=== PATIENT | male | born 1970 | race American Indian/Alaskan Native ===

== ENCOUNTER 2021-09-07 22:28 | Emergency (ER) | payer SELFPAY ==
[2021-09-07 22:35] VITALS: BP 155/98
[2021-09-07] MEDS ORDERED: RABIES VACCINE, HUMAN DIPLOID/PF 2.5 UNIT/ML VIAL IM ONE (23:46)
[2021-09-07] MEDS ORDERED: RABIES IMMUNE GLOBULIN P/F 300 UNIT/ML INJ 5 ML IM ONE (23:46)
[2021-09-07] MEDS ORDERED: ONDANSETRON 4 MG ODT TAB PO ONE (23:47)
[2021-09-07] MEDS ORDERED: HYDROcodone/ACETAMINOPHEN 7.5-325MG TAB PO ONE (23:47)
[2021-09-07] MEDS ORDERED: AMOXICILLIN/K CLAV 875/125MG TAB PO ONE (23:47)
--- NOTE | 2021-09-08 00:57 | XRay Report ---
LEFT HAND 4 VIEW(S) INDICATION / CLINICAL INFORMATION: Puncture woundsleft hand - dog bite COMPARISON: None available. FINDINGS: BONES / JOINT(S): No acute fracture or subluxation. No significant arthritis. SOFT TISSUES: No significant abnormality. ADDITIONAL FINDINGS: None. IMPRESSION: 1. No acute fracture. No significant abnormality. Signer Name: Marcus Naranjo II, MD Signed: 09/08/2021 12:52 AM Workstation Name: [id number]
--- NOTE | 2021-09-08 01:07 | Emergency Department Report ---
ED Animal Bite HPI - General Chief Complaint: Animal Bite Stated Complaint: Dog bite left hand Source: patient, EMS Mode of arrival: Stretcher Limitations: No Limitations - History of Present Illness Initial Comments: Patient is a 50-year-old -[place] male with no past medical history presented to the ED with complaint of acute onset persistent painful dorsal left hand puncture wounds after being bitten by a stray dog on the street about 1 hour prior to arrival in the ED. Patient states that the pain is worse with any active range of motion of the left hand. Patient states that he is up-to-date with all his vaccinations. Patient denies numbness and tingling or weakness of left hand, dizziness, syncope, nausea and vomiting or chest pain, shortness of breath or neck or head injuries. MD Complaint: animal bite (Dog bite to dorsal left hand), animal-related injury (Puncture wound on dorsal left hand) -: Sudden, hour(s) (1) Location: other (dorsal left hand) Left: Hand (dorsal left hand puncture wounds) Animal: dog Animal Control Notified: No Description: unknown animal Mechanism: bite, contact with mucous membr Pain Description: sharp, constant Severity scale (0 -10): 8 Context: unprovoked Associated Symptoms: none. denies: erythema, discharge from wound, bleeding, fever, chills, rash, loss of consciousness, cough, diaphoresis, shortness of breath - Related Data Patient Tetanus UTD: Yes Previous Rx's Medication Instructions Recorded Last Taken Type Acetaminophen with Codeine 1 each PO Q6HR PRN #20 tab 09/08/21 Unknown Rx [Acetaminophen-Codeine #2 TAB] Amoxicillin/Potassium Clav 1 each PO Q12H PRN #12 tab 09/08/21 Unknown Rx [Augmentin 875-125 Tablet] Allergies Allergy/AdvReac Type Severity Reaction Status Date / Time aspirin Allergy Hives Verified 09/07/21 22:30 ED Review of Systems ROS: Stated complaint: Dog bite left hand Other details as noted in HPI Constitutional: denies: chills, fever Eyes: denies: eye pain, eye discharge, vision change ENT: denies: ear pain, throat pain Respiratory: denies: cough, shortness of breath, wheezing Cardiovascular: denies: chest pain, palpitations Endocrine: no symptoms reported Gastrointestinal: denies: abdominal pain, nausea, diarrhea Genitourinary: denies: urgency, dysuria Musculoskeletal: arthralgia (Left dorsal left hand pain due to multiple puncture wounds from a dog bite). denies: back pain, joint swelling Skin: other (Multiple puncture wounds on dorsal left hand from dog bite). denies: rash, lesions Neurological: denies: headache, weakness, paresthesias Psychiatric: denies: anxiety, depression Hematological/Lymphatic: denies: easy bleeding, easy bruising ED Past Medical Hx - Social History Smoking Status: Never Smoker Substance Use Type: None - Medications Home Medications: Home Medications Medication Instructions Recorded Confirmed Last Taken Type Acetaminophen with Codeine 1 each PO Q6HR PRN #20 tab 09/08/21 Unknown Rx [Acetaminophen-Codeine #2 TAB] Amoxicillin/Potassium Clav 1 each PO Q12H PRN #12 tab 09/08/21 Unknown Rx [Augmentin 875-125 Tablet] ED Physical Exam - General Limitations: No Limitations General appearance: alert, in no apparent distress - Head Head exam: Present: atraumatic, normocephalic, normal inspection - Eye Eye exam: Present: normal appearance, PERRL, EOMI Pupils: Present: normal accommodation - ENT ENT exam: Present: normal exam, normal orophraynx, mucous membranes moist, TM's normal bilaterally, normal external ear exam - Neck Neck exam: Present: normal inspection, full ROM. Absent: tenderness - Respiratory Respiratory exam: Present: normal lung sounds bilaterally. Absent: respiratory distress, wheezes, rales, stridor, chest wall tenderness, accessory muscle use, decreased breath sounds - Cardiovascular Cardiovascular Exam: Present: regular rate, normal rhythm, normal heart sounds. Absent: systolic murmur, diastolic murmur, rubs, gallop - GI/Abdominal GI/Abdominal exam: Present: soft, normal bowel sounds. Absent: tenderness, guarding, rebound, rigid, hyperactive bowel sounds, hypoactive bowel sounds, organomegaly, mass - Extremities Exam Extremities exam: Present: normal inspection, full ROM, tenderness (Palpable dorsal left hand tenderness with mild swelling due to multiple puncture wounds), normal capillary refill, joint swelling (Mildly swollen dorsal left hand due to multiple puncture wounds). Absent: pedal edema, calf tenderness - Back Exam Back exam: Present: normal inspection, full ROM. Absent: tenderness, CVA tenderness (R), CVA tenderness (L), muscle spasm, paraspinal tenderness, vertebral tenderness - Neurological Exam Neurological exam: Present: alert, oriented X3, CN II-XII intact, normal gait, reflexes normal - Psychiatric Psychiatric exam: Present: normal affect, normal mood - Skin Skin exam: Present: warm, dry, intact, normal color, other (Multiple puncture wounds on dorsal left hand with tenderness and mild swelling). Absent: rash ED Course Vital Signs 09/07/21 22:30 Temperature 98 F Pulse Rate 99 H Respiratory 18 Rate Blood Pressure 155/98 O2 Sat by Pulse 99 Oximetry Critical care attestation.: If time is entered above; I have spent that time in minutes in the direct care of this critically ill patient, excluding procedure time. ED Disposition Clinical Impression: Dog bite of left hand without complication Qualifiers: Encounter type: initial encounter Qualified Code(s): S61.452A - Open bite of left hand, initial encounter; W54.0XXA - Bitten by dog, initial encounter Puncture wound of left hand Qualifiers: Encounter type: initial encounter Foreign body presence: unspecified Qualified Code(s): S61.432A - Puncture wound without foreign body of left hand, initial encounter Disposition: HOME / SELF CARE / HOMELESS Is pt being admited?: No Does the pt Need Aspirin: No Condition: Stable Instructions: Animal Bite, Adult, [id number], Puncture Wound, [id number], Rabies Additional Instructions: Take medication as needed for pain, drink plenty of fluids, follow-up with [facility] or [facility] or [facility] for subsequent rabies vaccine series on day 3 (September 11, 2021), Day 7 (September 15, 2021) and day 14 (September 22, 2021). Follow-up with your primary care physician in 7 to 10 days for reevalu ation. Return to the ED immediately if symptoms get worse. Prescriptions: Acetaminophen with Codeine [Acetaminophen-Codeine #2 TAB] 1 each PO Q6HR PRN #20 tab PRN Reason: Pain Amoxicillin/Potassium Clav [Augmentin 875-125 Tablet] 1 each PO Q12H PRN #12 tab PRN Reason: Pain , Severe (7-10) Referrals: [facility], [facility] [Other] - 3-5 Days Time of Disposition: 01:11 Print Language: BENGALI
== END 2021-09-08 02:12 | disposition home or self-care (01) ==
LOC: ED 22:28
DX: S61.432A Puncture wound without foreign body of left hand, initial encounter (principal); Z88.6 Allergy status to analgesic agent; Z79.899 Other long term (current) drug therapy; W54.0XXA Bitten by dog, initial encounter; Y93.89 Activity, other specified; Y92.89 Other specified places as the place of occurrence of the external cause; Y99.8 Other external cause status
CPT/HCPCS: 90375; 90471; 90675; 96372; 99284; J3490; Q0162